=== PATIENT | female | born 1990 | race Caucasian/White ===

== ENCOUNTER 2016-08-09 18:15 | Emergency (ER) | payer OTHER ==
[2016-08-09 19:32] VITALS: BP 118/72
[2016-08-09] MEDS ORDERED: Ibuprofen TAB* 600 MG PO ONE (20:01)
--- NOTE | 2016-08-09 20:15 | UC ---
FLU HPI - HPI Summary HPI Summary: pt c/o nasal congestion, cough, and generalized malaise X 1 day. Pt did not get flu vaccine this season - History of Current Complaint Chief Complaint: UCGeneralIllness Stated Complaint: COUGH/ACHY/CHILLS Time Seen by Provider: 08/09/16 19:50 Hx Obtained From: Patient Hx Last Menstrual Period: 08/02/16 ?: No Onset/Duration: Sudden Onset, Lasting Hours Severity Currently: Mild Severity Initially: Mild Associated Signs & Symptoms: Positive: Fever, Myalgia, Cough, Sore Throat, Nasal Congestion - Allergy/Home Medications Allergies/Adverse Reactions: Allergies Allergy/AdvReac Type Severity Reaction Status Date / Time Sulfamethoxazole Allergy Intermediate Rash Verified 08/09/16 19:27 w/Trimethoprim [From Bactrim] PMH/Surg Hx/FS Hx/Imm Hx Previously Healthy: Yes Endocrine History Of: Denies: Diabetes Cardiovascular History Of: Denies: Cardiac Disorders Respiratory History Of: Reports: Asthma - Surgical History Surgical History: Yes Surgery Procedure, Year, and Place: d & c (apr 2010) Gallbladder (august 2011); tubal ligation - Family History Known Family History: Positive: Other - positive [facility] for URI - Social History Lives: With Family Alcohol Use: None Substance Use Type: None Smoking Status (MU): Heavy Every Day Tobacco Smoker Type: Cigarettes Amount Used/How Often: 1/2ppd Length of Time of Smoking/Using Tobacco: 5 Years Have You Smoked in the Last Year: Yes Household Exposure Type: Cigarettes - Immunization History Most Recent Influenza Vaccination: Not UTD Review of Systems Constitutional: Fever, Chills, Fatigue Skin: Negative Eyes: Negative ENT: Sore Throat Respiratory: Cough Cardiovascular: Negative Gastrointestinal: Negative Genitourinary: Negative Motor: Negative Neurovascular: Negative Musculoskeletal: Myalgia Neurological: Negative Psychological: Negative All Other Systems Reviewed And Are Negative: Yes Physical Exam Triage Information Reviewed: Yes Appearance: Ill-Appearing Vital Signs: Initial Vital Signs Temp 100.5 F 08/09/16 19:28 Pulse 93 08/09/16 19:28 Resp 18 08/09/16 19:28 BP 118/72 08/09/16 19:28 Pulse Ox 97 08/09/16 19:28 Vital Signs Reviewed: Yes Eye Exam: Normal ENT Exam: Other ENT: Positive: Nasal congestion, TM bulging Neck exam: Normal Respiratory Exam: Normal Cardiovascular Exam: Normal Musculoskeletal Exam: Normal Neurological Exam: Normal Psychological Exam: Normal Skin Exam: Normal Flu Course/Dx - Differential Dx/Diagnosis Differential Diagnosis/HQI/PQRI: Influenza, Upper Respiratory Infection Provider Diagnoses: Influenza B Discharge - Discharge Plan Condition: Stable Disposition: HOME Prescriptions: Oseltamivir CAP* [Tamiflu CAP*] 75 mg PO BID #10 cap Patient Education Materials: Influenza (ED) Referrals: Juancarlos Cruz PA [Primary Care Provider] - If Needed (Please follow up with your PCP or return to clinic as needed. )
[2016-08-09] MEDS ORDERED: Oseltamivir CAP* 75 MG PO ONE (20:16)
== END 2016-08-09 20:24 | disposition home or self-care (01) ==
LOC: UCCORT 18:15
DX: J11.1 Influenza due to unidentified influenza virus with other respiratory manifestations (principal); Z90.49 Acquired absence of other specified parts of digestive tract; Z88.2 Allergy status to sulfonamides; F17.210 Nicotine dependence, cigarettes, uncomplicated
CPT/HCPCS: 87502; 99212; A9270-GY; G0463

== ENCOUNTER 2018-04-19 20:18 | Emergency (ER) | payer OTHER ==
[2018-04-19 20:32] VITALS: BP 118/61
--- NOTE | 2018-04-19 20:59 | UC ---
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 - History of Current Complaint Chief Complaint: UCLowerExtremity Stated Complaint: LEG CRAMPS/TINGLING Time Seen by Provider: 04/19/18 20:33 Hx Obtained From: Patient Hx Last Menstrual Period: 03/26/18 Onset/Duration: Gradual Onset, Lasting Weeks Severity Initially: Moderate Severity Currently: Moderate Pain Intensity: 7 Pain Scale Used: 0-10 Numeric Aggravating Factor(s): Standing Alleviating Factor(s): Rest, Elevation Able to Bear Weight: Yes - Allergies/Home Medications Allergies/Adverse Reactions: Allergies Allergy/AdvReac Type Severity Reaction Status Date / Time sulfamethoxazole Allergy Rash Verified 04/19/18 20:26 [From Bactrim] trimethoprim [From Bactrim] Allergy Rash Verified 04/19/18 20:26 Home Medications: Home Medications Acetaminophen TAB* [Tylenol TAB*] 650 mg PO Q4H PRN 04/19/18 [History Confirmed 04/19/18] Albuterol HFA INHALER* [Ventolin HFA Inhaler*] 2 puff INH Q4H PRN 04/19/18 [ History Confirmed 04/19/18] Ibuprofen TAB* [Advil TAB*] 400 mg PO Q6H PRN 04/19/18 [History Confirmed ] PMH/Surg Hx/FS Hx/Imm Hx Previously Healthy: Yes - Surgical History Surgical History: Yes Surgery Procedure, Year, and Place: d & c (apr 2010) Gallbladder (august 2011); tubal ligation - Family History Known Family History: Positive: Hypertension, Other - positive [facility] for URI, hx DVT - Social History Alcohol Use: Rare Substance Use Type: None Smoking Status (MU): Heavy Every Day Tobacco Smoker Type: Cigarettes Amount Used/How Often: less than 1/2ppd Length of Time of Smoking/Using Tobacco: 2009 Have You Smoked in the Last Year: Yes Household Exposure Type: Cigarettes - Immunization History Most Recent Influenza Vaccination: Not UTD Review of Systems All Other Systems Reviewed And Are Negative: Yes Constitutional: Positive: Negative Skin: Positive: Negative Eyes: Positive: Negative ENT: Positive: Negative Respiratory: Positive: Negative Cardiovascular: Positive: Negative Gastrointestinal: Positive: Negative Genitourinary: Positive: Negative Motor: Positive: Negative Neurovascular: Positive: Negative Musculoskeletal: Positive: Edema Neurological: Positive: Negative Psychological: Positive: Negative Is Patient Immunocompromised?: No Physical Exam Triage Information Reviewed: Yes Appearance: Well-Appearing, No Pain Distress, Well-Nourished Vital Signs: Initial Vital Signs Temp 97.0 F 04/19/18 20:27 Pulse 69 04/19/18 20:27 Resp 15 04/19/18 20:27 BP 118/61 04/19/18 20:27 Pulse Ox 100 04/19/18 20:27 Vital Signs Reviewed: Yes Eyes: Positive: Conjunctiva Clear ENT: Negative: Nasal congestion, Nasal drainage, Trismus, Muffled voice, Hoarse voice Neck: Positive: Supple Respiratory: Positive: Lungs clear, Normal breath sounds, No respiratory distress, No accessory muscle use Cardiovascular: Positive: RRR, No Murmur Musculoskeletal: Positive: ROM Intact, No Edema Neurological: Positive: Alert Psychological Exam: Normal Skin Exam: Normal Images Front/Back of Body, Lg ([place]): 1 - Right leg 1 cm > at 10 cm below tibial tubercle 2 - R leg 3.5 cm > left leg at 20 cm below tibial tubercle 3 - prominent firm and tender varicosities Lower Extremity Course/Dx - Course Course Of Treatment: advised she needed a higher level of care to r/o or r/i DVT. aware this is potentially fatal condition. she states she will go directly to ER. d/w Alessandra Puckett MEDICINE MAN - Differential Dx/Diagnosis Provider Diagnosis: Right leg pain Discharge - Sign-Out/Discharge Documenting (check all that apply): Patient Departure All imaging exams completed and their final reports reviewed: No Studies - Discharge Plan Condition: Stable Disposition: HOME Referrals: Juancarlos Cruz PA [Primary Care Provider] - Additional Instructions: I suggest you go straight to the ER for evaluation I spoke to Alessandra Puckett NP - Billing Disposition and Condition Condition: STABLE Disposition: Home
== END 2018-04-19 21:03 | disposition home or self-care (01) ==
LOC: UCCORT 20:18
DX: M79.604 Pain in right leg (principal); Z83.2 Family history of diseases of the blood and blood-forming organs and certain disorders involving the immune mechanism; Z88.1 Allergy status to other antibiotic agents; F17.210 Nicotine dependence, cigarettes, uncomplicated
CPT/HCPCS: 99212; G0463

== ENCOUNTER 2018-11-08 07:39 | Emergency (ER) | payer OTHER ==
--- OUTSIDE RECORDS SUMMARY | 2018-11-08 07:48 | XMS REPORT | Continuity of Care Document ---
:1990 External Reference #:[id number] Author Name Brenda Sharpe, ART Address [address] [place] [id number] Care Team Providers Name Role Phone Nuno Cruz Primary Care Physician Unavailable Payers Date Identification Numbers Payment Provider Subscriber Effective: 2017 Policy Number: [id number] [facility] Suzie Collier Group Name: [employer] Medicaid [address] PayID: [id number] [place] [address] Effective: 2018 Policy Number: [id number] Medicaid -[place] Suzie Collier PayID: [id number] [address] [place] [address] Family History Date Family Member(s) Observation Comments General Ovarian Cancer PFM Father Alive Father Hypertension Father Hypercholesterolemia Mother Alive Mother Diabetes Social History Type Date Description Comments Sex Female Education Highest level completed, 12th grade Marital Status Legal Status: Never Tobacco Use Reviewed: 10/21/18 Never Smoked Cigars Tobacco Use Reviewed: 10/21/18 Never Smoked A Pipe Smoking Status Reviewed: 10/21/18 Never Smoked A Pipe Tobacco Use Reviewed: 10/21/18 Never Used Smokeless Tobacco ETOH Use Rarely consumes alcohol Tobacco Use Reviewed: 10/21/18 Heavy tobacco smoker (more than 10 cigarettes/day) Recreational Drug Use Denies Drug Use Recreational Drug Use Teaching provided regarding Naloxone/Narcan Training Available At [facility] Tattoo/Piercing Tattoos professionally done Condom Use Never UNKNOWN 10/21/2018 Never E-Cigarette user Allergies, Adverse Reactions, Alerts Active Allergies Reaction Severity Comments Date Bactrim 10/21/2018 Medications Active Medications SIG Qnty Indications Ordering Provider Date Metronidazole one tab by 14tabs N76.0 Brenda Sharpe, 10/21/2018 500mg Tablets mouth twice RN OBGYN daily x 7 days no etoh History Medications No Active Medications Unknown 10/21/2018 - 10/21/2018 Vital Signs Date Vital Result Comment 10/21/2018 2:51pm BP Systolic 125 mmHg BP Diastolic 76 mmHg Height 66 inches 5'6" Weight 217.00 lb BMI (Body Mass Index) 35.0 kg/m2 Results Test Date Facility Test Result H/L Range Note Wet Prep.... 10/21/2018 [facility] WBC Smear 0 Clue Cells Vag Fluid Wet Prep many Linsey Wet Prep 0 Lactobacillus Wet Prep few Whiff Wet Prep + Bacteria Wet Prep n/a PH Wet Prep 7.5 Misc Other Test no trich seen Laboratory test finding 10/21/2018 [facility] HIV Rapid... non reactive Encounters Type Date Location Provider Dx Diagnosis Office Visit 10/21/2018 [facility] - Brenda Sharpe, Z11.3 Encntr screen for 2:00p STD RN OBGYN infections w sexl mode of transmiss Z11.4 Encounter for screening for human immunodeficiency virus N76.0 Acute vaginitis Plan of Treatment 10/21/2018 - Brenda Sharpe, NPZ11.3 Encounter for screening for infections with a predominantlyComments:Reviewed STD risks and prevention with patient. Patient states understanding.Z11.4 Encounter for screening for human immunodeficiency tzbpiD00.0 Acute vaginitisNew Medication:Metronidazole 500 mg - one tab by mouth twice daily x 7 days no etohComments:+ whiff test and multiple clue cells on wet prep. Rx metronidazole- reviewed use of, side effects and precautions (including no etoh) with patient who states understanding. Instructed patient on pelvicrest x 2 weeks.Follow up:prn no improvement in symptoms
[2018-11-08 07:53] VITALS: BP 119/77
--- NOTE | 2018-11-08 08:23 | UC ---
UC General HPI - HPI Summary HPI Summary: headache, sore throat and cough, wheezing with some sob. 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 hx asthma. no cp or fever. - History of Current Complaint Chief Complaint: UCRespiratory Stated Complaint: SOB,COUGH Time Seen by Provider: 11/08/18 08:15 Hx Obtained From: Patient Hx Last Menstrual Period: unknown Onset/Duration: Gradual Onset Timing: Constant Pain Intensity: 3 - Allergy/Home Medications Allergies/Adverse Reactions: Allergies Allergy/AdvReac Type Severity Reaction Status Date / Time sulfamethoxazole Allergy Rash Verified 11/08/18 07:48 [From Bactrim] trimethoprim [From Bactrim] Allergy Rash Verified 11/08/18 07:48 PMH/Surg Hx/FS Hx/Imm Hx Respiratory History: Asthma - Surgical History Surgical History: Yes Surgery Procedure, Year, and Place: d & c (apr 2010) Gallbladder (august 2011); tubal ligation. ablation - Family History Known Family History: Positive: Hypertension, Other - positive [facility] for URI, hx DVT - Social History Alcohol Use: Rare Substance Use Type: None Smoking Status (MU): Heavy Every Day Tobacco Smoker Type: Cigarettes Amount Used/How Often: 1/2ppd Length of Time of Smoking/Using Tobacco: 2008 Have You Smoked in the Last Year: Yes Household Exposure Type: Cigarettes - Immunization History Most Recent Influenza Vaccination: Not UTD Review of Systems All Other Systems Reviewed And Are Negative: Yes Constitutional: Negative: Fever, Chills ENT: Positive: Sore Throat Respiratory: Positive: Shortness Of Breath, Cough Cardiovascular: Negative: Palpitations, Chest Pain Neurological: Positive: Headache Physical Exam Triage Information Reviewed: Yes Appearance: Well-Appearing Vital Signs: Initial Vital Signs Temp 97.6 F 11/08/18 07:49 Pulse 105 11/08/18 07:49 Resp 20 11/08/18 07:49 BP 119/77 11/08/18 07:49 Pulse Ox 98 11/08/18 07:49 Vital Signs Reviewed: Yes Eyes: Positive: Conjunctiva Clear ENT: Positive: Pharynx normal, TMs normal. Negative: Nasal congestion, Nasal drainage Neck: Positive: Supple, Nontender, No Lymphadenopathy Respiratory: Positive: No respiratory distress, Decreased breath sounds. Negative: Crackles, Rhonchi, Wheezing Cardiovascular: Positive: RRR, No Murmur Abdomen Description: Positive: Nontender, No Organomegaly, Soft Bowel Sounds: Positive: Present Musculoskeletal: Positive: ROM Intact Neurological: Positive: Alert Psychological: Positive: Age Appropriate Behavior Skin Exam: Normal Diagnostics - Laboratory Lab Results: rapid strep=positive Course/Dx - Diagnoses Provider Diagnosis: Strep throat, Asthma Discharge - Sign-Out/Discharge Documenting (check all that apply): Patient Departure All imaging exams completed and their final reports reviewed: No Studies - Discharge Plan Condition: Stable Disposition: HOME Prescriptions: Albuterol 2.5MG/3ML (0.083%)* [Ventolin 2.5 MG/3 ML NEB.SEMAJ*] 2.5 mg INH Q6H PRN #1 neb.semaj PRN Reason: Shortness Of Breath Albuterol HFA INHALER* [Ventolin HFA Inhaler*] 2 puff INH Q6H #1 mdi Amoxicillin PO (*) [Amoxicillin 500 MG CAP*] 500 mg PO Q12H 10 Days #20 cap predniSONE [Prednisone 20 MG TAB] 40 mg PO DAILY 5 Days #10 tablet Patient Education Materials: Asthma (ED), Strep Throat (DC) Referrals: Juancarlos Cruz PA [Primary Care Provider] - 5 Days Additional Instructions: use the albuterol nebulizer or inhaler but not both at the same time. - Billing Disposition and Condition Condition: STABLE Disposition: Home
== END 2018-11-08 08:48 | disposition home or self-care (01) ==
LOC: UCCORT 07:39
DX: J02.0 Streptococcal pharyngitis (principal); B95.0 Streptococcus, group A, as the cause of diseases classified elsewhere; J45.909 Unspecified asthma, uncomplicated; Z88.1 Allergy status to other antibiotic agents; F17.210 Nicotine dependence, cigarettes, uncomplicated
CPT/HCPCS: 87651; 99212; G0463